=== PATIENT | male | born 1945 | race Caucasian/White ===

== ENCOUNTER → 2017-03-22 | Outpatient (CLI) | payer OTHER ==
[~2017-03-22] MED LIST: ASPEC81 PO; AVD5 PO; FLM4 PO; LATA0.009 OPR; OXYC-57 PO
--- NOTE | 2017-03-22 15:30 | DIAGNOSTIC IMAGING REPORT ---
KUB CLINICAL HISTORY: Nephrolithiasis. COMPARISON STUDY: KUB March 09, 2016. FINDINGS: Several bilateral renal calculi measure up to 5 mm. Calculus burden is similar to exam of March 09, 2016. Midline pelvic calcifications likely reflect bladder calculi. These measure up to 1 cm. No ureteral calculi are identified. Bowel gas pattern is normal. Calcified nodules are incidentally noted within visualized portions of the chest. These are unchanged. IMPRESSION: 1. No significant change in bladder and bilateral renal calculi. 2. No ureteral calculi. Electronically signed by: Jl Iqbal M.D. 03/22/2017 3:29 PM Dictated Date/Time: 03/22/2017 3:26 PM
--- NOTE | 2017-04-11 06:44 | CODING QUERY MEDICAL NECESSITY ---
SUPPORTING DIAGNOSIS NEEDED Dr. Wilkins, A supporting diagnosis is required for the test/procedure performed on this patient in order for us to be reimbursed by the patient's insurance. Please provide a supporting diagnosis for the following test/procedure listed below next to the test name along with your signature. *If there is no additional diagnosis for this patient that would support the following test/procedure please document that below next to the test/procedure. Test(s)/Procedure(s) that require a supporting diagnosis: * [id number] PSA DIAGNOSIS: DATE OF SERVICE: 03/22/17 Provider Signature: Date: Thank you Greg Garcia [facility] Information Management Once completed, please kindly fax back to [phone] For questions please call [phone]
== END | disposition home or self-care (01) ==
LOC: C.RAD 14:36
PROVIDERS: ATTEND Urology
DX: N20.0 Calculus of kidney (principal); N40.1 Benign prostatic hyperplasia with lower urinary tract symptoms

== ENCOUNTER 2022-09-19 07:22 | Observation (INO) ==
--- NOTE | 2022-09-14 09:00 | Anesthesiology Consultation ---
Date of Service September 14, 2022 Assessment & Plan (1) Encounter for pre-operative examination: Chart Review Chart Review: Acceptable Risk for Surgery and Patient NOT seen in Pre Admission Testing -COVID screening: Per PAT nursing assessment on -. No known COVID-19 positive contacts or current COVID-19 related symptoms. Travel screen negative. Patient vaccinated for Covid. At surgeon discretion if preop Covid testing being done. History Surgery Operation Date: 09/19/22 07:30 Proposed Procedures p Cystolithopaxy (Bladder Stone Fragmentation and Removal) - Oracio Taylor MD s TURP (Transurethral Resection of the Prostate) - Oracio Taylor MD Height/Weight Height: 5 ft 10 in Weight: 88.451 kg Allergies Allergy/AdvReac Type Severity Reaction Status Date / Time Sulfa (Sulfonamide Allergy Intermediate syncope/diz Verified 09/14/22 08:05 Antibiotics) ziness Medications Home Medications Medication Instructions Recorded Confirmed Last Taken aspirin 81 mg tablet,delayed 81 mg PO DAILY 01/05/20 09/14/22 08/17/22 release (Adult Aspirin Regimen) prednisolone acetate 1 % eye 1 drops OPR DAILY 01/05/20 09/14/22 08/21/22 drops,suspension timolol 0.25 % eye drops 1 drops OPB BID 01/12/20 09/14/22 08/21/22 naproxen 250 mg tablet 250 mg PO BID PRN pain #60 tabs 03/22/20 09/14/22 Unknown oxcarbazepine 150 mg tablet 150 mg PO BID PRN ud 10/05/21 09/14/22 Unknown (Trileptal) dutasteride 0.5 mg capsule 0.5 mg PO QPM 08/14/22 09/14/22 08/21/22 atorvastatin 10 mg tablet (Lipitor) 10 mg PO QAM #90 tabs 08/15/22 09/14/22 08/21/22 allopurinol 300 mg tablet 150 mg PO QPM 09/14/22 09/14/22 Unknown amlodipine 5 mg tablet 5 mg PO QAM 09/14/22 09/14/22 Unknown Past Medical History Medical History BPH w/o urinary obs/LUTS Cornea transplant recipient right HTN (hypertension) Hx of gout Hyperlipidemia Nephrolithiasis 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 Past Family History Family History Father Diabetes Mother Joint replaced Sister Hypertension Other No family history of adverse response to anesthesia Past Surgical History Surgical History H/O elbow surgery "to move a muscle" Left elbow H/O neck surgery Laminectomy --> [facility] (GOOD ROM) History of colonoscopy History of detached retina repair right History of lithotripsy S/P eye surgery (~1995) right (x4 different surgeries) has a reservoir tube in the right eye to maintain eye pressure Social History Smoking Status: Never smoker Hx Alcohol Use: Yes Alcohol type: beer and wine alcohol intake frequency: a few times a month substance use type: does not use Lab Results Anesthesia Preop Results Results Anesthesia Widget: WBC 6.70 K/ul (4.8-10.8) 09/04/22 Hgb 15.7 g/dl (14.0-18.0) 09/04/22 Hct 47.6 % (42.0-52.0) 09/04/22 Plt 177 K/uL (130-400) 09/04/22 Na 139 mmol/L (136-145) 09/04/22 K 4.2 mmol/L (3.5-5.1) 09/04/22 Cl 103 mmol/L (98-107) 09/04/22 CO2 30 mmol/L (21-32) 09/04/22 BUN 25 mg/dl (6-23) H 09/04/22 Creat 0.95 mg/dl (0.6-1.4) 09/04/22 Glucose Level 89 mg/dl (70-99(Fasting)) 09/04/22 Testing Laboratory Results 09/04/22= URINE CULTURE: No growth Electrocardiogram Date: 09/04/22 NSR with frequent PACs at 60bpm Left axis deviation RBBB When compared to EKG from January 25, 2010- PACs are now present, RBBB is now present per cardio Chest X-Ray Date: 09/04/22 Findings: + NAD and + cardiomegaly FINDINGS: No pneumothorax or pleural effusion is present. Multiple calcified pulmonary nodules are unchanged from prior exam. These suggest calcified granulomas. There is no consolidation to suggest pneumonia. There is no evidence for pulmonary edema. Moderate cardiomegaly is noted.
[~2022-09-19 07:22] MED LIST changes: -ASPEC81 PO; -AVD5 PO; +CIPROFLOXACIN / D5W 400 MG/200 ML BAG IV SCH; -FLM4 PO; -LATA0.009 OPR; +LR 15ML/HR IV SCH; -OXYC-57 PO
--- NOTE | 2022-09-19 07:58 | History & Physical Bridge Note ---
Date of Service September 19, 2022 History & Physical Bridge Note I have examined the patient, reviewed the History & Physical and in the interval since the performance of the History & Physical I have noted the following changes of clinical significance: no changes noted
[2022-09-19] MEDS ORDERED: PROPOFOL IV EMULSION 10 MG/ML 20 ML VIAL IV ONE (08:24)
[2022-09-19] MEDS ORDERED: fentaNYL citrate 100 MCG/2 ML VIAL ONE (08:24)
[2022-09-19] MEDS ORDERED: DEXAMETHASONE SOD INJ 4 MG/ML VIAL ONE (08:24)
[2022-09-19] MEDS ORDERED: ONDANSETRON INJ 2 MG/ML 2 ML VIAL ONE (08:24)
[2022-09-19] MEDS ORDERED: ATROPINE SULFATE 0.1 MG/ML 10ML SYR IV PRN (08:39)
[2022-09-19] MEDS ORDERED: ePHEDrine sulfate 50 MG/ML AMP IV PRN (08:39)
[2022-09-19] MEDS ORDERED: ONDANSETRON INJ 2 MG/ML 2 ML VIAL IV PRN (08:39)
[2022-09-19] MEDS ORDERED: HYDROmorphone INJ 1 MG/ML SYRINGE IV PRN (08:39)
[2022-09-19] MEDS ORDERED: fentaNYL citrate 100 MCG/2 ML VIAL IV PRN (08:39)
[2022-09-19] MEDS ORDERED: ePHEDrine sulfate 50 MG/ML AMP ONE (09:19)
--- NOTE | 2022-09-19 11:09 | Operative Report ---
PG Post Operative Report Pre & Post Diagnosis Operation Date: 09/19/22 09:10 Pre-Op Diagnosis: Bladder Calculus Benign Prostatic Hyperplasia Post-Op Diagnosis: Bladder Calculus Benign Prostatic Hyperplasia I identified the patient and participated in the time-out.: Yes Procedure Operation Date: 09/19/22 09:10 Actual Procedures p Cystolithopaxy(Not Applicable) - Oracio Taylor MD s Transurethral Resection of the Prostate(Not Applicable) - Oracio Taylor MD Surgeon Oracio Taylor MD Row Boss Hoeing none Estimated Blood Loss 5 Findings Consistent with Post-Op Diagnosis Specimens 1. Bladder stones for chemical analysis 2. Prostate chips for pathology Description of Procedure The patient was identified in the preoperative holding area, appropriate informed consents were reviewed and completed and the patient was transferred to the operative suite. Upon arrival, appropriate antibiotics and anesthesia were administered and the patient was placed in dorsal lithotomy position and prepped and draped in sterile fashion. Begin the case to pass a 27 Irish resectoscope with 30 degree lens and visual obturator. Inspection reveals a healthy-appearing urethra but a very large prostate with substantial intravesical component. Bladder capacity was quite limited because of this. He has several stones within the dependent portion of the bladder. The stones all have a central core with numerous spikes protruding from them. There are 2 shallow diverticuli on the posterior wall, I believe both may incorporate the ureteral orifices from each side respectively. Following my visual inspection I utilized a laser bridge and a 550 m laser fiber to fragment the stones entirely. I then irrigated all stone debris out of the bladder. Of note, visualization was somewhat challenging because of the large prostate but I was able to adequately treat the stones. I then turned my attention to treatment of the prostate. Utilizing a resecting element and a loop electrode, I began to resect the intravesical median lobe. There was circumferential intrusion of the prostate into the bladder but the posterior element created a true median lobe. After resecting this, passage of the scope into the bladder was considerably improved. Those chips were irrigated out of the bladder as well as any remaining stone fragments. I then proceeded to continue resection of the posterior aspect of the prostate. This area seem to offer this most substantial obstruction. After completely flattening the floor of the prostate I turned my attention to the left lateral lobe and right lateral lobes. I did resect some of the intravesical intruding tissue and then continue my resection back towards the apex of the prostate. Ultimately all chips were irrigated out of the bladder before utilizing a button electrode to further smooth the resected tissue and obtain meticulous hemostasis. At the conclusion of the case the chips were passed off the table for pathology. The stones were passed off the table for chemical analysis. A 22 Irish three-way Cole catheter was inserted. He was reversed of anesthesia and taken to the recovery room in stable condition. There were no complications. I attest to the content of the Intraoperative Record and any orders documented therein. Any exceptions are noted below.
[2022-09-19] MEDS ORDERED: traMADol HCL 50 MG TABLET PO PRN ×2 (12:07)
[2022-09-19] MEDS ORDERED: ACETAMINOPHEN 325 MG TAB PO PRN (12:07)
[2022-09-19] MEDS ORDERED: OXcarbazepine 150 MG TABLET PO PRN (12:07)
[2022-09-19] MEDS: LACTATED RINGER'S 1,000 ML IV SCH ×2 (13:15→22:23)
--- NOTE | 2022-09-19 13:56 | Anesthesiology Progress Note ---
Date of Service September 19, 2022 Anesthesia Post Procedure Vital Signs Vital Signs: Temp Pulse Pulse Resp BP BP Pulse Ox 09/19/22 13:00 36.4 C L 91 H 17 116/71 96 09/19/22 12:37 36.4 C L 89 16 125/77 97 09/19/22 12:00 36.5 C 87 14 148/88 H 94 09/19/22 11:30 36.6 C 84 18 132/83 96 09/19/22 11:20 78 19 135/88 96 09/19/22 11:10 36.2 C L 79 21 141/87 H 96 09/19/22 10:59 36.2 C L 84 19 155/95 H 96 09/19/22 08:09 36.8 C 86 20 147/102 H 96 O2 Del Method O2 Flow Rate 09/19/22 13:00 Nasal Cannula 1 09/19/22 12:37 Nasal Cannula 2 09/19/22 12:00 Nasal Cannula 2 09/19/22 11:30 Nasal Cannula 4 09/19/22 11:20 Nasal Cannula 4 09/19/22 11:10 Oxymask 5 09/19/22 10:59 Oxymask 5 09/19/22 08:09 Room Air Transfer of Care Handoff Completed per policy Notes Mental Status: alert / awake / arousable and participated in evaluation Patient Amnestic to Procedure: Yes Nausea / Vomiting: adequately controlled Pain: adequately controlled Airway Patency, RR, SpO2: stable & adequate BP & HR: stable & adequate Hydration State: stable & adequate Anesthetic Complications: no major complications apparent and Pt Satisfied with anesthetic care
[2022-09-19] MEDS ORDERED: allopurinoL 300 MG TAB PO SCH (21:00)
[2022-09-19] MEDS: TIMOLOL MALEATE 0.25% OP SOLN 5 ML BTL OP SCH (21:36)
[2022-09-20 07:39] LABS: Basophils # (auto) 0.01 K/uL (0-0.2); Basophils % (auto) 0.1 %; Hematocrit (blood only) 41.6 % (42.0-52.0); Hemoglobin 13.6 g/dl (14.0-18.0); Immature Granulocytes # (auto) 0.07 K/uL (0.01-0.20); Immature Granulocytes % (auto) 0.7 %; Lymphocytes # (auto) 1.07 K/uL (1.2-3.4); Lymphocytes % (auto) 10.4 %; Mean Corpuscular Hemoglobin 28.8 pg (25.0-34.0); Mean Corpuscular Hgb Conc 32.7 g/dL (32.0-36.0); Mean Corpuscular Volume 87.9 fL (80.0-100.0); Mean Platelet Volume 10.3 fL (9.4-12.4); Monocytes # (auto) 0.81 K/uL (0.11-0.59); Monocytes % (auto) 7.8 %; Neutrophils # (auto) 8.36 K/uL (1.40-6.50); Platelet Count 175 K/uL (130-400); RDW Coefficient of Variation 14.3 % (11.5-14.5); RDW Standard Deviation 46.5 fL (36.4-46.3); Red Blood Count 4.73 M/uL (4.70-6.10); White Blood Count 10.32 K/ul (4.8-10.8)
[2022-09-20 07:54] LABS: Calcium 8.9 mg/dl (8.5-10.1); Creatinine Clr Calc Pharmacy 63.9 ml/min; Est GFR (African American) 75.8 ml/min; Est GFR (Non-African American) 65.4 ml/min; Potassium 4.3 mmol/L (3.5-5.1)
--- NOTE | 2022-09-20 08:08 | Urology Progress Note ---
Date of Service September 20, 2022 Assessment & Plan (1) Bladder calculus: (2) Enlarged prostate: Plan Postop day #1 status post laser litholapaxy and TURP CBI clamped earlier today Urine relatively clear Plan for voiding trial and discharge home Admission and Anticipated Discharge Date Admission Date: September 19, 2022 Subjective No major issues overnight Ambulatory No pain Small amount of blood in the urine but his CBI has been clamped as he has been walking in the hallway Creatinine stable Hemoglobin stable Plan for voiding trial this morning and discharge home later today Results & Data ([facility]) Vital Signs (Past 12 Hours) Vital Signs Temp Pulse Resp BP Pulse Ox O2 Del Method 09/20/22 04:21 36.6 C 76 16 115/67 96 Room Air 09/19/22 22:28 36.7 C 79 18 121/77 95 Room Air PG Care Time/CCT Total # of Minutes Spent Total Time Spent with Patient: Total time spent is greater than 50% in coordination of care (as documented) at patient's floor/unit and/or counseling patient: Coding Level of Care Code None Diagnoses Bladder calculus N21.0 Enlarged prostate N40.0
[2022-09-20] MEDS ORDERED: amLODIPine BESYLATE 5 MG TAB PO SCH (09:00)
[2022-09-20] MEDS ORDERED: prednisoLONE acetate 1% OP SUSP 5 ML BTL OPR SCH (09:00)
[2022-09-20] MEDS ORDERED: ATORVASTATIN 10 MG TAB PO SCH (09:00)
[2022-09-20] MEDS: TIMOLOL MALEATE 0.25% OP SOLN 5 ML BTL OP SCH (09:37)
[2022-09-20] MEDS: LACTATED RINGER'S 1,000 ML IV SCH (09:40)
[2022-09-20] MEDS ORDERED: PHENAZOPYRIDINE HCL 200 MG TAB PO PRN (14:00)
--- NOTE | 2022-09-20 16:02 | Discharge Summary ---
Date of Service September 20, 2022 Admission HPI Per Admitting Provider Patient with BPH and bladder calculi here for TURP and litholapaxy. Risks, benefits, expectations reviewed. Admission Exam Per Admitting Provider Constitutional well developed and well nourished Neck neck nontender Respiratory normal respiratory effort; no respiratory distress and does not use accessory muscles Cardiovascular Rate/Rhythm: regular rate Vessels: radial pulses present Extremities: no edema Gastrointestinal (Abdomen) Inspection/Auscultation: abdomen normal to inspection Percussion/Palpation: abdomen soft; abdomen nontender and no guarding Musculoskeletal Head/Neck/Chest: normocephalic and head atraumatic Extremities: extremities normal to inspection Skin no rashes and no lesions Trauma: no evidence of skin trauma Neurologic awake; not obtunded Speech / Cognition: normal speech Motor/Sensory: no tremor Psychiatric Orientation: alert and oriented x 3 Genitourinary no CVA tenderness Lymphatic no lymphadenopathy Principal Diagnosis Bladder calculi and BPH Discharge Exam Constitutional well developed and well nourished; no acute distress Respiratory normal respiratory effort; no respiratory distress and no labored breathing Cardiovascular Extremities: no pedal edema Gastrointestinal (Abdomen) Inspection/Auscultation: abdomen normal to inspection; abdomen not distended Neurologic moves all extremities and awake Psychiatric Orientation: alert and oriented x 3 Genitourinary Urine in urinal schulz red, small clots noted Discharge Data Allergies Allergy/AdvReac Type Severity Reaction Status Date / Time Sulfa (Sulfonamide Allergy Intermediate syncope/diz Verified 09/19/22 08:16 Antibiotics) ziness Procedures Performed Operation Date: 09/19/22 09:10 Actual Procedures p Cystolithopaxy(Not Applicable) - Oracio Taylor MD s Transurethral Resection of the Prostate(Not Applicable) - Oracio Taylor MD Hospital Course (1) Bladder calculus: (2) Enlarged prostate: Plan Postop day #1 status post laser litholapaxy and TURP CBI clamped earlier today Urine relatively clear Plan for voiding trial and discharge home Patient reassessed this afternoon. Generally feeling well. Catheter was removed by nursing mid morning. Patient reports some resistance was met initially during catheter removal, but more water was aspirated from balloon and catheter was removed. He has voided small amounts of schulz red urine since removal. He reports some dysuria and discomfort with void after catheter removal. Added Pyridium prn for discomfort. Bladder scan this afternoon was low - 40 mL. - Reviewed plan of care with Dr. Claudia Hickman for discharge to home - orders placed - Expected clinical course reviewed, all questions answered - Office will arrange outpatient follow-up Total Time Total Time Spent Total Time Spent (In Minutes): 29 Discharge Plan Discharge Items Patient Disposition: Home - Self-Care Reason For Visit: Bladder Calculus Benign Prostatic Hyperplasia with Discharge Diagnosis: Bladder Calculus Benign Prostatic Hyperplasia with Activity: Per Instructions section Lifting: No more than 25 pounds Bathing: No limitations Sexual Activity: Wait until after follow-up appointment Exercise/Sports: Wait until after follow-up appointment Driving/Machine Use: No driving while taking prescription pain medication Non-emergency contact: Surgeon and Urologist Call non-emergency contact if: your pain is not controlled, you have a fever and your temperature is above 101 Follow-up/Referrals: Jerel Armas DO [Primary Care Provider] - Diet: Regular Addtl Attending Provider Instructions: Please take all medications as prescribed and keep all follow-ups as scheduled. Please call our office at [phone] with any questions, concerns or need to reschedule appointments for any reason. We are happy to assist you. *You can resume aspirin on 09/22/22 if your urine is clear to pink/light red. Call if any questions. Some prescriptions were sent to your pharmacy: Start your antibiotic tonight and continue twice daily as directed until completed. Tips for your recovery at home: Dont be alarmed by brownish or reddish blood or clots in your urine. This is a result of the procedure. This may occur off and on for weeks to months after the procedure but should continue to improve. Drink plenty of fluids during the day (enough to keep your urine very light colored). This will help keep a healthy flow of urine. Do not lift >25 lbs until your followup Avoid constipation. Please use a stool softener (Colace) for the first two weeks after your procedure Be sure to finish the antibiotics as prescribed. If you go home with a catheter, please wash tubing where it enters your body twice daily with mild soap (Dove or Dial). Once your catheter is removed, expect some blood in your urine and some burning when you urinate. You should have an appointment to have this removed, if you do not please call our office to arrange. When to call [facility] at [phone]: Your urine contains heavy blood clots Your pain is not relieved with medication Go to ER if unable to void in 6 to 8 hours or fever of 101F or higher, chills, nausea, or vomiting Pending Studies at Discharge: Yes Stand-Alone Forms: [facility] [employer], Smoking Cessation Medications and DC Order Prescriptions: New ciprofloxacin HCl 500 mg tablet 500 mg PO BID Qty: 6 0RF docusate sodium [Colace] 100 mg capsule 100 mg PO BID Qty: 60 0RF Rx Instructions: Take twice daily for 2 weeks, then as needed for constipation. phenazopyridine [Pyridium] 200 mg tablet 200 mg PO Q8H PRN (Reason: pain) Qty: 10 0RF oxycodone-acetaminophen [Percocet] 5-325 mg tablet 1 tab PO TID PRN (Reason: pain) Qty: 10 0RF Continued naproxen 250 mg tablet 250 mg PO BID PRN (Reason: pain) Qty: 60 0RF atorvastatin [Lipitor] 10 mg tablet 10 mg PO QAM Qty: 90 3RF aspirin [Adult Aspirin Regimen] 81 mg tablet,delayed release (DR/EC) 81 mg PO DAILY Patient Comments: ON HOLD FOR SURGERY prednisolone acetate 1 % drops,suspension 1 drops OPR DAILY Patient Comments: TAKES AT NOON timolol 0.25 % drops 1 drops OPB BID oxcarbazepine [Trileptal] 150 mg tablet 150 mg PO BID PRN (Reason: ud) Patient Comments: USES DAILY PRN FOR JAW PAIN amlodipine 5 mg tablet 5 mg PO QAM allopurinol 300 mg tablet 150 mg PO QPM Discontinued dutasteride 0.5 mg capsule 0.5 mg PO QPM Discharge Orders: Discharge Order (Routine); Ordered 09/20/22 Ordered By: Simran Crandall Admission Data Admit Date/Time: 09/19/22 11:06 Attending Provider: Oracio Taylor Admit Provider: Oracio Taylor Primary Care Provider: Jerel Armas Coding Level of Care Code 92369 IN/OBS DISCH 30 MIN/LESS Diagnoses Bladder calculus N21.0 Enlarged prostate N40.0 Time Spent (min) 29
== END 2022-09-20 16:45 | disposition home or self-care (01) ==
LOC: 3W 07:22 → ASU 07:22